=== PATIENT | male | born 1955 | race Two or more races ===

== ENCOUNTER 2020-10-30 15:10 | Inpatient (IN) | payer MEDICAID ==
[~2020-10-30] VITALS: Ht 180.3 cm; Wt 86.4 kg
[2020-10-30] MEDS ORDERED: SODIUM BICARBONATE 50 MEQ/50 ML VIAL ONE (15:16)
[2020-10-30] MEDS ORDERED: HEPARIN SODIUM 1000 UNITS/NS 1,000 ML ONE (15:16)
[2020-10-30] MEDS ORDERED: IODIXANOL 320 MG/ML 100 ML VIAL ONE (15:16)
[2020-10-30] MEDS ORDERED: IODIXANOL 320 MG/ML 150 ML VIAL ONE (15:16)
[2020-10-30] MEDS ORDERED: LIDOCAINE/PF 1% 30 ML VIAL ONE (15:16)
[2020-10-30] MEDS ORDERED: IODIXANOL 320 MG/ML 50 ML VIAL ONE (15:16)
[2020-10-30] MEDS ORDERED: ATOR40TA28 PO (15:23)
[2020-10-30] MEDS ORDERED: CEFX2I IV (15:23)
[2020-10-30] MEDS ORDERED: GABA-1216 PO (15:23)
[2020-10-30] MEDS ORDERED: ONDANSETRON HCL 4 MG/2 ML VIAL IVP PRN ×2 (15:30→18:45)
[2020-10-30] MEDS ORDERED: INSU100V39 SQ (15:30)
[2020-10-30] MEDS ORDERED: ACETAMINOPHEN 325 MG TABLET PO PRN ×2 (15:30→18:45)
[2020-10-30] MEDS ORDERED: VANC250C13 IV (15:30)
[2020-10-30] MEDS ORDERED: INSLAN SQ (15:30)
[2020-10-30 15:41] VITALS: BP 178/76
[2020-10-30] MEDS ORDERED: FentaNYL CITRATE PF 100 MCG/2 ML VIAL ONE (15:47)
[2020-10-30] MEDS ORDERED: MIDAZOLAM HCL 2 MG/2 ML VIAL ONE (15:48)
[2020-10-30] MEDS ORDERED: SODIUM CHLORIDE 0.9% 500 ML IV ONE (15:55)
[2020-10-30] MEDS ORDERED: FentaNYL CITRATE PF 100 MCG/2 ML VIAL IVP ONE (15:58)
[2020-10-30] MEDS ORDERED: MIDAZOLAM HCL 2 MG/2 ML VIAL IVP ONE (15:58)
[2020-10-30] MEDS ORDERED: LIDOCAINE 1% 30 ML/SOD BICARB 8.4% 4 ML SQ ONE (16:01)
[2020-10-30] MEDS ORDERED: IODIXANOL 320 MG/ML 100 ML VIAL IARTER ONE (16:10)
[2020-10-30] MEDS ORDERED: IODIXANOL 320 MG/ML 150 ML VIAL IARTER ONE (16:10)
[2020-10-30] MEDS ORDERED: IODIXANOL 320 MG/ML 50 ML VIAL IARTER ONE (16:10)
[2020-10-30] MEDS ORDERED: HEPARIN SODIUM 1000 UNITS/NS 1,000 ML IARTER ONE (16:14)
[2020-10-30] MEDS ORDERED: HEPARIN SODIUM,PORCINE 5,000 UNITS/ML VIAL IVP ONE ×2 (16:14→16:54)
[2020-10-30] MEDS ORDERED: HEPARIN SODIUM,PORCINE 1,000 UNITS/ML 10 ML VIAL ONE (16:49)
[2020-10-30] MEDS ORDERED: NITROGLYCERIN 50 MG/D5% WATER 250 ML ONE (16:50)
[2020-10-30] MEDS ORDERED: NITROGLYCERIN/D5W 50 MG/250 ML IV BOTTLE IARTER ONE (16:55)
[2020-10-30] MEDS ORDERED: DEXTROSE 50%-WATER 25 GM/50 ML SYRINGE IVP PRN (17:15)
[2020-10-30 18:40] VITALS: BP 146/71
[2020-10-30] MEDS ORDERED: HYDROCODONE/ACETAMINOPHEN 5-325 MG TABLET PO PRN (18:45)
[2020-10-30] MEDS ORDERED: BISACODYL 10 MG RECTAL RECTAL SUPPOSITORY PR PRN (18:45)
[2020-10-30] MEDS ORDERED: ZOLPIDEM TARTRATE 5 MG TABLET PO PRN (18:45)
[2020-10-30] MEDS ORDERED: *CLINICAL-LEVOFLOXACIN IVPB DOSING CLINICAL ONE (18:45)
[2020-10-30] MEDS ORDERED: MAGNESIUM HYDROXIDE SUSPENSION 30 ML UDCUP PO PRN (18:45)
[2020-10-30 19:14] LABS: GLUCOMETER DEV NAME(LOC) 6S.1; GLUCOSE,POINT OF CARE 133 MG/DL (70-110)
[2020-10-30 20:00] VITALS: BP 122/65
[2020-10-30] MEDS: SODIUM CHLORIDE 0.9% 1,000 ML IV SCH (20:05)
[2020-10-30] MEDS: LEVOFLOXACIN 750 MG/D5% WATER 150 ML IV SCH (20:05)
[2020-10-30] MEDS: METOPROLOL TARTRATE 25 MG TABLET PO SCH (20:06)
[2020-10-30] MEDS: DOCUSATE SODIUM 100 MG CAPSULE PO SCH (20:06)
[2020-10-30] MEDS: GABAPENTIN 100 MG CAPSULE PO SCH (20:06)
[2020-10-30] MEDS: ATORVASTATIN CALCIUM 40 MG TABLET PO SCH (20:06)
[2020-10-30] MEDS: MORPHINE SULFATE 2 MG/ML SYRINGE IVP PRN (20:06)
[2020-10-30] MEDS: CARVEDILOL 3.125 MG TABLET PO SCH (20:06)
[2020-10-30] MEDS: INSULIN GLARGINE,HUM.REC.ANLOG 100 UNITS/ML SQ SCH (20:45)
[2020-10-30 21:00] VITALS: BP 132/63
[2020-10-30] MEDS ORDERED: ATORVASTATIN CALCIUM 40 MG TABLET PO SCH (21:00)
[2020-10-30] MEDS: INSULIN LISPRO 100 UNITS/ML SQ PRN (21:53)
[2020-10-30] MEDS ORDERED: PNEUMOCOCCAL VACCINE POLYVALENT 0.5 ML VIAL [PPSV23] IM. ONE (22:00)
[2020-10-30 22:07] VITALS: BP_SYST 103; BP_SYST 123; BP_DIAS 52; BP_DIAS 62
[2020-10-30 22:14] LABS: GLUCOMETER DEV NAME(LOC) 6N.1; GLUCOSE,POINT OF CARE 295 MG/DL (70-110)
[2020-10-30 23:11] VITALS: BP 106/50
[2020-10-31] VITALS (7 sets, daily range): BP systolic 98–125; BP diastolic 52–62
[2020-10-31 01:02] LABS: COVID AG,FIA SOURCE NASAL SWAB
[2020-10-31] MEDS: MORPHINE SULFATE 2 MG/ML SYRINGE IVP PRN ×2 (04:49→20:20)
[2020-10-31 06:43] LABS: BASOPHILS % (AUTO) 0.6 % (0.0-2.0); EOSINOPHILS % (AUTO) 8.4 % (1.0-6.0); HEMATOCRIT 28.2 % (41-53); HEMOGLOBIN 9.6 g/dL (13.5-17.5); LYMPHOCYTES # (AUTO) 0.8 K/uL (1.0-4.8); LYMPHOCYTES % (AUTO) 11.6 % (22.0-44.0); MEAN CORPUSCULAR HEMOGLOBIN 28.9 pg (26.0-34.0); MEAN CORPUSCULAR VOLUME 85 fL (80-100); MONOCYTES # (AUTO) 0.7 K/uL (0.1-1.0); MONOCYTES % (AUTO) 10.1 % (2.0-9.0); NEUTROPHILS % (AUTO) 69.3 % (40.0-70.0); PLATELET COUNT (AUTO) 291 K/uL (150-450); RED BLOOD CELL COUNT(AUTO) 3.33 MIL/uL (4.50-5.90); RED CELL DISTRIBUTION WIDTH 14.9 % (11.5-14.5)
[2020-10-31 06:45] LABS: GLUCOMETER DEV NAME(LOC) 6N.1; GLUCOSE,POINT OF CARE 91 MG/DL (70-110)
[2020-10-31 07:02] LABS: ANION GAP 6 mmol/L (8-16); CALCIUM, TOTAL 8.4 mg/dL (8.8-10.5); CARBON DIOXIDE 32 mmol/L (22-29); CHLORIDE 103 mmol/L (98-107); CREATININE 0.66 mg/dL (0.60-1.30); GLOMERULAR FILTR. RATE CALC > 60 mL/min (>60); GLUCOSE,RANDOM 87 mg/dL (70-110); POTASSIUM 3.5 mmol/L (3.5-5.1); SODIUM SERUM 141 mmol/L (136-145); UREA NITROGEN, BLOOD 16 mg/dL (7-18)
[2020-10-31] MEDS: RIVAROXABAN 10 MG TABLET PO SCH ×2 (08:00→17:19)
[2020-10-31] MEDS: METOPROLOL TARTRATE 25 MG TABLET PO SCH ×2 (09:13→20:18)
[2020-10-31] MEDS: DOCUSATE SODIUM 100 MG CAPSULE PO SCH ×2 (09:13→20:18)
[2020-10-31] MEDS: PANTOPRAZOLE SODIUM 40 MG DR TABLET PO SCH (09:14)
[2020-10-31] MEDS: GABAPENTIN 100 MG CAPSULE PO SCH ×3 (09:14→20:18)
[2020-10-31] MEDS: CARVEDILOL 3.125 MG TABLET PO SCH ×2 (09:14→20:18)
[2020-10-31] MEDS: INSULIN GLARGINE,HUM.REC.ANLOG 100 UNITS/ML SQ SCH ×2 (09:19→20:39)
[2020-10-31] MEDS: SODIUM CHLORIDE 0.9% 1,000 ML IV SCH ×2 (09:20→20:17)
[2020-10-31] MEDS: INSULIN LISPRO 100 UNITS/ML SQ PRN ×3 (12:13→20:40)
[2020-10-31 13:33] LABS: GLUCOMETER DEV NAME(LOC) 6S.1; GLUCOSE,POINT OF CARE 150 MG/DL (70-110)
[2020-10-31 13:33] LABS: GLUCOMETER DEV NAME(LOC) 6N.1; GLUCOSE,POINT OF CARE 68 MG/DL (70-110)
[2020-10-31 18:30] LABS: GLUCOMETER DEV NAME(LOC) 6S.1; GLUCOSE,POINT OF CARE 192 MG/DL (70-110)
[2020-10-31] MEDS: LEVOFLOXACIN 750 MG/D5% WATER 150 ML IV SCH (20:18)
[2020-10-31] MEDS: ATORVASTATIN CALCIUM 40 MG TABLET PO SCH (20:18)
[2020-10-31 23:55] LABS: GLUCOMETER DEV NAME(LOC) 6S.1; GLUCOSE,POINT OF CARE 211 MG/DL (70-110)
[2020-11-01 05:09] LABS: GLUCOMETER DEV NAME(LOC) 6S.1; GLUCOSE,POINT OF CARE 83 MG/DL (70-110)
[2020-11-01 05:10] VITALS: BP 129/67
[2020-11-01] MEDS ORDERED: RINGERS SOLUTION,LACTATED 1,000 ML IV ONE (05:30)
[2020-11-01] MEDS ORDERED: LIDOCAINE/PF 1% 30 ML VIAL ONE (06:17)
[2020-11-01] MEDS ORDERED: BUPIVACAINE HCL/PF 0.5% 30 ML VIAL ONE (06:17)
[2020-11-01] MEDS ORDERED: BACITRACIN 50,000 UNITS/VIAL ONE (06:18)
[2020-11-01] MEDS ORDERED: SODIUM CL IRRIG SOLN BAG 0 ML IRRIG ONE (06:18)
[2020-11-01] MEDS ORDERED: SODIUM CHLORIDE 0.9% 1,000 ML ONE (06:18)
[2020-11-01 06:39] LABS: INR 1.1 (0.9-1.1); PROTHROMBIN TIME 12.1 SEC (9.4-11.6)
[2020-11-01] MEDS ORDERED: BUPIVACAINE HCL/PF 0.5% 30 ML VIAL IM ONE (07:00)
[2020-11-01] MEDS ORDERED: LIDOCAINE 1% 20 ML VIAL IM ONE (07:00)
[2020-11-01] MEDS ORDERED: THROMBIN, BOVINE 20000 UNITS/VIAL POWDER TP ONE (07:07)
[2020-11-01] MEDS ORDERED: GELATIN SPONGE,ABSORBABLE 50 MM TP ONE (07:07)
[2020-11-01] MEDS ORDERED: GELATIN SPONGE,ABSORBABLE 100 MM TP ONE (07:07)
[2020-11-01] MEDS ORDERED: FentaNYL CITRATE PF 100 MCG/2 ML VIAL IVP PRN (07:30)
[2020-11-01] MEDS: OXYGEN THERAPY IH SCH ×2 (08:00→20:00)
[2020-11-01 09:30] VITALS: BP 100/54
[2020-11-01] MEDS: METOPROLOL TARTRATE 25 MG TABLET PO SCH ×2 (09:40→20:19)
[2020-11-01] MEDS: CARVEDILOL 3.125 MG TABLET PO SCH ×2 (09:40→20:19)
[2020-11-01] MEDS: DOCUSATE SODIUM 100 MG CAPSULE PO SCH ×2 (09:40→20:19)
[2020-11-01] MEDS: GABAPENTIN 100 MG CAPSULE PO SCH ×3 (09:40→20:19)
[2020-11-01] MEDS: PANTOPRAZOLE SODIUM 40 MG DR TABLET PO SCH (09:40)
[2020-11-01] MEDS: RIVAROXABAN 10 MG TABLET PO SCH ×2 (09:41→17:32)
[2020-11-01] MEDS: INSULIN GLARGINE,HUM.REC.ANLOG 100 UNITS/ML SQ SCH ×2 (09:45→20:26)
[2020-11-01] MEDS: SODIUM CHLORIDE 0.9% 1,000 ML IV SCH ×2 (09:53→23:52)
[2020-11-01 10:19] LABS: BASOPHILS % (AUTO) 0.4 % (0.0-2.0); HEMATOCRIT 27.6 % (41-53); HEMOGLOBIN 9.1 g/dL (13.5-17.5); LYMPHOCYTES # (AUTO) 0.8 K/uL (1.0-4.8); MEAN CORPUSCULAR HEMOGLOBIN 28.3 pg (26.0-34.0); MEAN CORPUSCULAR HGB CONC 32.8 G/dL (31.0-37.0); MEAN CORPUSCULAR VOLUME 86 fL (80-100); MONOCYTES # (AUTO) 0.7 K/uL (0.1-1.0); MONOCYTES % (AUTO) 8.6 % (2.0-9.0); NEUTROPHILS # (AUTO) 5.5 K/uL (1.8-7.7); PLATELET COUNT (AUTO) 274 K/uL (150-450); RED CELL DISTRIBUTION WIDTH 14.9 % (11.5-14.5)
[2020-11-01 10:26] LABS: ANION GAP 4 mmol/L (8-16); CALCIUM, TOTAL 8.1 mg/dL (8.8-10.5); CARBON DIOXIDE 30 mmol/L (22-29); CHLORIDE 102 mmol/L (98-107); GLOMERULAR FILTR. RATE CALC > 60 mL/min (>60); GLUCOSE,RANDOM 220 mg/dL (70-110); POTASSIUM 4.1 mmol/L (3.5-5.1); SODIUM SERUM 136 mmol/L (136-145); UREA NITROGEN, BLOOD 19 mg/dL (7-18)
[2020-11-01] MEDS: INSULIN LISPRO 100 UNITS/ML SQ PRN ×3 (11:35→20:26)
[2020-11-01 13:12] LABS: GLUCOMETER DEV NAME(LOC) 6S.1; GLUCOSE,POINT OF CARE 244 MG/DL (70-110)
[2020-11-01 16:00] VITALS: BP 112/53
[2020-11-01] MEDS: MORPHINE SULFATE 2 MG/ML SYRINGE IVP PRN ×2 (17:36→20:20)
[2020-11-01 18:59] LABS: GLUCOMETER DEV NAME(LOC) 6S.1; GLUCOSE,POINT OF CARE 258 MG/DL (70-110)
[2020-11-01] MEDS: ATORVASTATIN CALCIUM 40 MG TABLET PO SCH (20:19)
[2020-11-01] MEDS: LEVOFLOXACIN 750 MG/D5% WATER 150 ML IV SCH (20:19)
[2020-11-01 20:45] VITALS: BP 152/78
[2020-11-02 00:08] LABS: GLUCOMETER DEV NAME(LOC) 6N.1; GLUCOSE,POINT OF CARE 233 MG/DL (70-110)
[2020-11-02 04:20] VITALS: BP 141/53
[2020-11-02] MEDS ORDERED: MIDAZOLAM HCL 2 MG/2 ML VIAL IVP ONE (05:17)
[2020-11-02] MEDS ORDERED: PROPOFOL 1% ISO-OSM 1000 MG/100 ML BOTTLE IV ONE (05:17)
[2020-11-02] MEDS ORDERED: ONDANSETRON HCL 4 MG/2 ML VIAL IVP ONE (05:17)
[2020-11-02] MEDS ORDERED: PROPOFOL 1% 20 ML VIAL IVP ONE (05:17)
[2020-11-02] MEDS ORDERED: FentaNYL CITRATE PF 100 MCG/2 ML VIAL IVP ONE (05:17)
[2020-11-02 06:44] LABS: BASOPHILS % (AUTO) 0.5 % (0.0-2.0); EOSINOPHILS % (AUTO) 8.6 % (1.0-6.0); HEMATOCRIT 26.1 % (41-53); HEMOGLOBIN 8.7 g/dL (13.5-17.5); LYMPHOCYTES % (AUTO) 12.2 % (22.0-44.0); MEAN CORPUSCULAR HEMOGLOBIN 28.5 pg (26.0-34.0); MEAN CORPUSCULAR HGB CONC 33.5 G/dL (31.0-37.0); MEAN CORPUSCULAR VOLUME 85 fL (80-100); MONOCYTES # (AUTO) 0.8 K/uL (0.1-1.0); MONOCYTES % (AUTO) 9.4 % (2.0-9.0); NEUTROPHILS # (AUTO) 5.6 K/uL (1.8-7.7); NEUTROPHILS % (AUTO) 69.3 % (40.0-70.0); PLATELET COUNT (AUTO) 326 K/uL (150-450); RED BLOOD CELL COUNT(AUTO) 3.06 MIL/uL (4.50-5.90)
[2020-11-02 06:54] LABS: GLUCOMETER DEV NAME(LOC) 6N.1; GLUCOSE,POINT OF CARE 76 MG/DL (70-110)
[2020-11-02 07:04] LABS: ANION GAP 3 mmol/L (8-16); CALCIUM, TOTAL 8.4 mg/dL (8.8-10.5); CARBON DIOXIDE 32 mmol/L (22-29); CHLORIDE 106 mmol/L (98-107); CHOL/HDL RATIO 1.8 (4.2-7.3); CHOLESTEROL 94 mg/dL (131-200); CREATININE 0.67 mg/dL (0.60-1.30); GLOMERULAR FILTR. RATE CALC > 60 mL/min (>60); GLUCOSE,RANDOM 101 mg/dL (70-110); HDL CHOLESTEROL 52 mg/dL (40-60); LDL CHOL (CALC.) 36 mg/dL (0-130); POTASSIUM 4.2 mmol/L (3.5-5.1); SODIUM SERUM 141 mmol/L (136-145); TRIGLYCERIDES 32 mg/dL (15-150); UREA NITROGEN, BLOOD 16 mg/dL (7-18)
[2020-11-02] MEDS: OXYGEN THERAPY IH SCH ×2 (08:00→20:00)
[2020-11-02 08:02] VITALS: BP 113/38
[2020-11-02 08:20] VITALS: BP 112/46
[2020-11-02] MEDS: DOCUSATE SODIUM 100 MG CAPSULE PO SCH ×2 (08:46→20:26)
[2020-11-02] MEDS: MULTIVITAMINS WITH MINERALS, THERAPEUTIC TABLET PO SCH (08:46)
[2020-11-02] MEDS: ASCORBIC ACID 500 MG TABLET PO SCH (08:46)
[2020-11-02] MEDS: PANTOPRAZOLE SODIUM 40 MG DR TABLET PO SCH (08:46)
[2020-11-02] MEDS: THIAMINE 100 MG TABLET PO SCH (08:46)
[2020-11-02] MEDS: RIVAROXABAN 10 MG TABLET PO SCH ×2 (08:47→17:16)
[2020-11-02] MEDS: FOLIC ACID 0.4 MG TABLET PO SCH (08:47)
[2020-11-02] MEDS: GABAPENTIN 100 MG CAPSULE PO SCH ×3 (08:47→20:26)
[2020-11-02] MEDS: INSULIN GLARGINE,HUM.REC.ANLOG 100 UNITS/ML SQ SCH ×2 (08:53→20:32)
[2020-11-02] MEDS: CARVEDILOL 3.125 MG TABLET PO SCH ×2 (09:00→20:26)
[2020-11-02] MEDS: INSULIN LISPRO 100 UNITS/ML SQ PRN ×3 (11:54→20:30)
[2020-11-02] MEDS ORDERED: FAMOTIDINE 20 MG TABLET PO ONE (12:00)
[2020-11-02] MEDS ORDERED: DiphenhydrAMINE HCL 25 MG/10 ML ELIXIR UDCUP PO ONE (12:00)
[2020-11-02] MEDS ORDERED: PredniSONE 20 MG TABLET PO ONE (12:00)
[2020-11-02] MEDS ORDERED: DiphenhydrAMINE HCL 25 MG CAPSULE PO ONE (12:30)
[2020-11-02 12:47] LABS: GLUCOMETER DEV NAME(LOC) 6N.1; GLUCOSE,POINT OF CARE 241 MG/DL (70-110)
[2020-11-02 15:00] VITALS: BP 133/46
[2020-11-02 18:10] LABS: GLUCOMETER DEV NAME(LOC) 6S.1; GLUCOSE,POINT OF CARE 212 MG/DL (70-110)
[2020-11-02 20:10] VITALS: BP 151/79
[2020-11-02] MEDS: ATORVASTATIN CALCIUM 40 MG TABLET PO SCH (20:26)
[2020-11-02] MEDS: MORPHINE SULFATE 2 MG/ML SYRINGE IVP PRN (20:27)
[2020-11-02 23:15] LABS: GLUCOMETER DEV NAME(LOC) 6N.1; GLUCOSE,POINT OF CARE 263 MG/DL (70-110)
[2020-11-02] MEDS: DiphenhydrAMINE HCL 25 MG CAPSULE PO PRN (23:59)
[2020-11-03 05:05] VITALS: BP 116/64
[2020-11-03] MEDS: INSULIN LISPRO 100 UNITS/ML SQ PRN ×4 (05:19→23:15)
[2020-11-03 06:35] LABS: GLUCOMETER DEV NAME(LOC) 6S.1; GLUCOSE,POINT OF CARE 163 MG/DL (70-110)
[2020-11-03] MEDS: OXYGEN THERAPY IH SCH ×2 (08:00→23:05)
[2020-11-03 08:05] VITALS: BP 105/75
[2020-11-03] MEDS: MULTIVITAMINS WITH MINERALS, THERAPEUTIC TABLET PO SCH (08:12)
[2020-11-03] MEDS: THIAMINE 100 MG TABLET PO SCH (08:13)
[2020-11-03] MEDS: PANTOPRAZOLE SODIUM 40 MG DR TABLET PO SCH (08:13)
[2020-11-03] MEDS: RIVAROXABAN 10 MG TABLET PO SCH ×2 (08:13→16:57)
[2020-11-03] MEDS: ASCORBIC ACID 500 MG TABLET PO SCH (08:13)
[2020-11-03] MEDS: FOLIC ACID 0.4 MG TABLET PO SCH (08:15)
[2020-11-03] MEDS: GABAPENTIN 100 MG CAPSULE PO SCH ×3 (08:15→23:04)
[2020-11-03] MEDS: DOCUSATE SODIUM 100 MG CAPSULE PO SCH ×2 (08:15→21:50)
[2020-11-03] MEDS: DiphenhydrAMINE HCL 25 MG CAPSULE PO PRN (08:15)
[2020-11-03] MEDS: MORPHINE SULFATE 2 MG/ML SYRINGE IVP PRN ×3 (08:16→21:52)
[2020-11-03] MEDS: INSULIN GLARGINE,HUM.REC.ANLOG 100 UNITS/ML SQ SCH ×2 (08:45→23:14)
[2020-11-03] MEDS: CARVEDILOL 3.125 MG TABLET PO SCH ×2 (09:58→21:50)
[2020-11-03 10:08] VITALS: BP 158/73
[2020-11-03 11:34] LABS: BASOPHILS % (AUTO) 0.6 % (0.0-2.0); EOSINOPHILS % (AUTO) 4.1 % (1.0-6.0); HEMATOCRIT 26.7 % (41-53); HEMOGLOBIN 8.9 g/dL (13.5-17.5); LYMPHOCYTES # (AUTO) 1.5 K/uL (1.0-4.8); MEAN CORPUSCULAR HEMOGLOBIN 28.3 pg (26.0-34.0); MEAN CORPUSCULAR HGB CONC 33.3 G/dL (31.0-37.0); MEAN CORPUSCULAR VOLUME 85 fL (80-100); MONOCYTES # (AUTO) 0.7 K/uL (0.1-1.0); MONOCYTES % (AUTO) 7.5 % (2.0-9.0); NEUTROPHILS # (AUTO) 6.2 K/uL (1.8-7.7); NEUTROPHILS % (AUTO) 70.8 % (40.0-70.0); PLATELET COUNT (AUTO) 324 K/uL (150-450); RED BLOOD CELL COUNT(AUTO) 3.14 MIL/uL (4.50-5.90); RED CELL DISTRIBUTION WIDTH 14.5 % (11.5-14.5)
[2020-11-03 11:54] LABS: ANION GAP 5 mmol/L (8-16); CALCIUM, TOTAL 8.8 mg/dL (8.8-10.5); CARBON DIOXIDE 34 mmol/L (22-29); CHLORIDE 100 mmol/L (98-107); CREATININE 0.63 mg/dL (0.60-1.30); GLOMERULAR FILTR. RATE CALC > 60 mL/min (>60); GLUCOSE,RANDOM 267 mg/dL (70-110); POTASSIUM 3.9 mmol/L (3.5-5.1); SODIUM SERUM 139 mmol/L (136-145); UREA NITROGEN, BLOOD 16 mg/dL (7-18)
[2020-11-03 12:31] LABS: GLUCOMETER DEV NAME(LOC) 6S.1; GLUCOSE,POINT OF CARE 243 MG/DL (70-110)
[2020-11-03 15:43] VITALS: BP 147/72
[2020-11-03 17:24] LABS: GLUCOMETER DEV NAME(LOC) 6S.1; GLUCOSE,POINT OF CARE 264 MG/DL (70-110)
[2020-11-03] MEDS ORDERED: PredniSONE 20 MG TABLET PO ONE (17:30)
[2020-11-03] MEDS ORDERED: DiphenhydrAMINE HCL 25 MG CAPSULE PO ONE (17:30)
[2020-11-03] MEDS ORDERED: FAMOTIDINE 20 MG TABLET PO ONE (17:30)
[2020-11-03 20:05] VITALS: BP 117/67
[2020-11-03] MEDS: ATORVASTATIN CALCIUM 40 MG TABLET PO SCH (23:04)
[2020-11-04 00:29] LABS: GLUCOMETER DEV NAME(LOC) 6S.1; GLUCOSE,POINT OF CARE 292 MG/DL (70-110)
[2020-11-04 04:25] VITALS: BP 116/55
[2020-11-04] MEDS: INSULIN LISPRO 100 UNITS/ML SQ PRN ×3 (06:57→17:39)
[2020-11-04 07:03] LABS: GLUCOMETER DEV NAME(LOC) 6N.1; GLUCOSE,POINT OF CARE 226 MG/DL (70-110)
[2020-11-04] MEDS: OXYGEN THERAPY IH SCH ×2 (07:45→21:31)
[2020-11-04 07:54] VITALS: BP 122/61
[2020-11-04] MEDS: RIVAROXABAN 10 MG TABLET PO SCH ×2 (07:54→17:40)
[2020-11-04] MEDS: FOLIC ACID 0.4 MG TABLET PO SCH (07:54)
[2020-11-04] MEDS: GABAPENTIN 100 MG CAPSULE PO SCH ×3 (07:54→22:55)
[2020-11-04] MEDS: CARVEDILOL 3.125 MG TABLET PO SCH ×2 (07:55→21:32)
[2020-11-04] MEDS: DOCUSATE SODIUM 100 MG CAPSULE PO SCH ×2 (07:55→21:31)
[2020-11-04] MEDS: PANTOPRAZOLE SODIUM 40 MG DR TABLET PO SCH (07:55)
[2020-11-04] MEDS: MULTIVITAMINS WITH MINERALS, THERAPEUTIC TABLET PO SCH (07:55)
[2020-11-04] MEDS: ASCORBIC ACID 500 MG TABLET PO SCH (07:55)
[2020-11-04] MEDS: THIAMINE 100 MG TABLET PO SCH (07:55)
[2020-11-04] MEDS: MORPHINE SULFATE 2 MG/ML SYRINGE IVP PRN ×2 (07:56→14:34)
[2020-11-04] MEDS: INSULIN GLARGINE,HUM.REC.ANLOG 100 UNITS/ML SQ SCH ×2 (08:00→21:00)
[2020-11-04] MEDS: DiphenhydrAMINE HCL 25 MG CAPSULE PO PRN (10:20)
[2020-11-04 15:39] VITALS: BP 146/73
[2020-11-04 16:24] LABS: GLUCOMETER DEV NAME(LOC) 6S.1; GLUCOSE,POINT OF CARE 246 MG/DL (70-110)
[2020-11-04] MEDS: CLINDAMYCIN HCL 300 MG CAPSULE PO SCH (16:24)
[2020-11-04 17:54] LABS: GLUCOMETER DEV NAME(LOC) 6N.1; GLUCOSE,POINT OF CARE 150 MG/DL (70-110)
[2020-11-04 20:10] VITALS: BP 104/53
[2020-11-04] MEDS: ATORVASTATIN CALCIUM 40 MG TABLET PO SCH (21:33)
[2020-11-04 22:31] LABS: GLUCOMETER DEV NAME(LOC) 6S.1; GLUCOSE,POINT OF CARE 124 MG/DL (70-110)
[2020-11-05] MEDS: CLINDAMYCIN HCL 300 MG CAPSULE PO SCH ×3 (00:54→15:20)
[2020-11-05 05:35] VITALS: BP 115/57
[2020-11-05 06:49] LABS: GLUCOMETER DEV NAME(LOC) 6N.1; GLUCOSE,POINT OF CARE 83 MG/DL (70-110)
[2020-11-05 07:31] VITALS: BP 111/65
[2020-11-05] MEDS: OXYGEN THERAPY IH SCH ×2 (08:00→20:34)
[2020-11-05] MEDS: FOLIC ACID 0.4 MG TABLET PO SCH (08:36)
[2020-11-05] MEDS: MULTIVITAMINS WITH MINERALS, THERAPEUTIC TABLET PO SCH (08:39)
[2020-11-05] MEDS: THIAMINE 100 MG TABLET PO SCH (08:39)
[2020-11-05] MEDS: RIVAROXABAN 10 MG TABLET PO SCH ×2 (08:40→17:18)
[2020-11-05] MEDS: PANTOPRAZOLE SODIUM 40 MG DR TABLET PO SCH (08:40)
[2020-11-05] MEDS: CARVEDILOL 3.125 MG TABLET PO SCH ×2 (08:40→20:35)
[2020-11-05] MEDS: ASCORBIC ACID 500 MG TABLET PO SCH (08:40)
[2020-11-05] MEDS: GABAPENTIN 100 MG CAPSULE PO SCH ×3 (08:41→20:36)
[2020-11-05] MEDS: DOCUSATE SODIUM 100 MG CAPSULE PO SCH ×2 (08:41→20:35)
[2020-11-05] MEDS: INSULIN GLARGINE,HUM.REC.ANLOG 100 UNITS/ML SQ SCH ×2 (08:43→21:00)
[2020-11-05] MEDS: MORPHINE SULFATE 2 MG/ML SYRINGE IVP PRN ×3 (09:55→20:47)
[2020-11-05 11:37] LABS: GLUCOMETER DEV NAME(LOC) 6N.1; GLUCOSE,POINT OF CARE 177 MG/DL (70-110)
[2020-11-05] MEDS: INSULIN LISPRO 100 UNITS/ML SQ PRN ×2 (11:40→17:19)
[2020-11-05 12:55] LABS: COVID AG,FIA SOURCE NASAL SWAB
[2020-11-05 15:47] VITALS: BP_SYST 120; BP_SYST 128; BP_DIAS 66; BP_DIAS 74
[2020-11-05 19:06] LABS: GLUCOMETER DEV NAME(LOC) 6S.1; GLUCOSE,POINT OF CARE 250 MG/DL (70-110)
[2020-11-05 20:00] VITALS: BP 98/51
[2020-11-05] MEDS: ATORVASTATIN CALCIUM 40 MG TABLET PO SCH (20:36)
[2020-11-06 00:17] LABS: GLUCOMETER DEV NAME(LOC) 6N.1; GLUCOSE,POINT OF CARE 159 MG/DL (70-110)
[2020-11-06] MEDS: CLINDAMYCIN HCL 300 MG CAPSULE PO SCH ×3 (00:31→15:41)
[2020-11-06 05:00] VITALS: BP 112/58
[2020-11-06 05:52] LABS: GLUCOMETER DEV NAME(LOC) 6S.1; GLUCOSE,POINT OF CARE 122 MG/DL (70-110)
[2020-11-06] MEDS: MORPHINE SULFATE 2 MG/ML SYRINGE IVP PRN ×3 (07:24→23:23)
[2020-11-06] MEDS: OXYGEN THERAPY IH SCH ×2 (08:00→21:38)
[2020-11-06 08:32] VITALS: BP 127/74
[2020-11-06] MEDS: ASCORBIC ACID 500 MG TABLET PO SCH (08:44)
[2020-11-06] MEDS: PANTOPRAZOLE SODIUM 40 MG DR TABLET PO SCH (08:44)
[2020-11-06] MEDS: MULTIVITAMINS WITH MINERALS, THERAPEUTIC TABLET PO SCH (08:44)
[2020-11-06] MEDS: GABAPENTIN 100 MG CAPSULE PO SCH ×3 (08:44→21:39)
[2020-11-06] MEDS: THIAMINE 100 MG TABLET PO SCH (08:44)
[2020-11-06] MEDS: CARVEDILOL 3.125 MG TABLET PO SCH ×2 (08:45→21:39)
[2020-11-06] MEDS: DOCUSATE SODIUM 100 MG CAPSULE PO SCH ×2 (08:45→21:39)
[2020-11-06] MEDS: FOLIC ACID 0.4 MG TABLET PO SCH (08:45)
[2020-11-06] MEDS: RIVAROXABAN 10 MG TABLET PO SCH ×2 (08:46→17:29)
[2020-11-06] MEDS: INSULIN GLARGINE,HUM.REC.ANLOG 100 UNITS/ML SQ SCH ×2 (08:48→21:48)
[2020-11-06] MEDS: INSULIN LISPRO 100 UNITS/ML SQ PRN ×2 (11:50→17:31)
[2020-11-06 13:58] LABS: GLUCOMETER DEV NAME(LOC) 6N.1; GLUCOSE,POINT OF CARE 198 MG/DL (70-110)
[2020-11-06 16:21] VITALS: BP 124/70
[2020-11-06 20:00] VITALS: BP 132/55
[2020-11-06 20:00] LABS: GLUCOMETER DEV NAME(LOC) 6S.1; GLUCOSE,POINT OF CARE 275 MG/DL (70-110)
[2020-11-06 22:35] LABS: GLUCOMETER DEV NAME(LOC) 6S.1; GLUCOSE,POINT OF CARE 203 MG/DL (70-110)
[2020-11-07] MEDS: ATORVASTATIN CALCIUM 40 MG TABLET PO SCH (01:50)
[2020-11-07] MEDS: CLINDAMYCIN HCL 300 MG CAPSULE PO SCH ×3 (01:51→16:50)
[2020-11-07 04:00] VITALS: BP 108/44
[2020-11-07] MEDS: OXYGEN THERAPY IH SCH (08:00)
[2020-11-07 08:12] VITALS: BP 106/47
[2020-11-07] MEDS: FOLIC ACID 0.4 MG TABLET PO SCH (09:26)
[2020-11-07] MEDS: GABAPENTIN 100 MG CAPSULE PO SCH ×2 (09:26→16:50)
[2020-11-07] MEDS: RIVAROXABAN 10 MG TABLET PO SCH (09:26)
[2020-11-07] MEDS: MULTIVITAMINS WITH MINERALS, THERAPEUTIC TABLET PO SCH (09:28)
[2020-11-07] MEDS: THIAMINE 100 MG TABLET PO SCH (09:29)
[2020-11-07] MEDS: CARVEDILOL 3.125 MG TABLET PO SCH (09:29)
[2020-11-07] MEDS: DOCUSATE SODIUM 100 MG CAPSULE PO SCH (09:30)
[2020-11-07] MEDS: ASCORBIC ACID 500 MG TABLET PO SCH (09:30)
[2020-11-07] MEDS: PANTOPRAZOLE SODIUM 40 MG DR TABLET PO SCH (09:30)
[2020-11-07] MEDS: INSULIN GLARGINE,HUM.REC.ANLOG 100 UNITS/ML SQ SCH (09:34)
[2020-11-07] MEDS: MORPHINE SULFATE 2 MG/ML SYRINGE IVP PRN ×2 (09:48→15:04)
[2020-11-07 11:26] LABS: GLUCOMETER DEV NAME(LOC) 6N.1; GLUCOSE,POINT OF CARE 139 MG/DL (70-110)
[2020-11-07 11:47] VITALS: BP 108/45
[2020-11-07] MEDS: INSULIN LISPRO 100 UNITS/ML SQ PRN (12:07)
[2020-11-07 23:50] LABS: GLUCOMETER DEV NAME(LOC) 6N.1; GLUCOSE,POINT OF CARE 211 MG/DL (70-110)
[2020-11-07 23:50] LABS: GLUCOMETER DEV NAME(LOC) 6N.1; GLUCOSE,POINT OF CARE 193 MG/DL (70-110)
== END 2020-11-07 17:18 | DRG 241 ==
LOC: EMS 15:10 → 6N 16:11
PROVIDERS: ADMIT Internal Medicine; ATTEND Internal Medicine
PROC: 047P3ZZ Dilation of Right Anterior Tibial Artery, Percutaneous Approach (ICD-10-PCS; 2020-10-30)
PROC: 047M3Z1 Dilation of Right Popliteal Artery using Drug-Coated Balloon, Percutaneous Approach (ICD-10-PCS; 2020-10-30)
PROC: B4101ZZ Fluoroscopy of Abdominal Aorta using Low Osmolar Contrast (ICD-10-PCS; 2020-10-30)
PROC: B41C1ZZ Fluoroscopy of Pelvic Arteries using Low Osmolar Contrast (ICD-10-PCS; 2020-10-30)
PROC: B41F1ZZ Fluoroscopy of Right Lower Extremity Arteries using Low Osmolar Contrast (ICD-10-PCS; 2020-10-30)
PROC: 0Y6M0ZB Detachment at Right Foot, Partial 2nd Ray, Open Approach (ICD-10-PCS; 2020-11-01)
PROC: 0Y6M0ZC Detachment at Right Foot, Partial 3rd Ray, Open Approach (ICD-10-PCS; 2020-11-01)
PROC: 0Y6M0ZD Detachment at Right Foot, Partial 4th Ray, Open Approach (ICD-10-PCS; 2020-11-01)
PROC: 0Y6M0ZF Detachment at Right Foot, Partial 5th Ray, Open Approach (ICD-10-PCS; 2020-11-01)
PROC: 0Y6M0Z9 Detachment at Right Foot, Partial 1st Ray, Open Approach (ICD-10-PCS; principal; 2020-11-01 07:00)
DX: E11.52 Type 2 diabetes mellitus with diabetic peripheral angiopathy with gangrene (principal); E11.65 Type 2 diabetes mellitus with hyperglycemia; E11.42 Type 2 diabetes mellitus with diabetic polyneuropathy; E78.5 Hyperlipidemia, unspecified; D64.9 Anemia, unspecified; I10 Essential (primary) hypertension; Z20.822 Contact with and (suspected) exposure to COVID-19; Z79.4 Long term (current) use of insulin; Z89.512 Acquired absence of left leg below knee; Z79.01 Long term (current) use of anticoagulants; Z79.899 Other long term (current) drug therapy
CPT/HCPCS: 36200; 75630; 75716; 75962; 80048; 80061; 82962; 85025; 85610; 85730; 87070; 87077; 87081; 87186; 87205; 88307; 88311; 93005; 97110; 97116; 97162; 97530; 99285; J1644; J1815; J1956; J2250; J2270; J2405; J2704; J3010; J3490; J7030; J7120; Q9967; 36415-L1; 36415-TC; 73630-TC; C1725; C1760; C1887; J7512; S0020; Z7502; Z7512; Z7610